=== PATIENT | male | born 1985 | race Caucasian/White ===

== ENCOUNTER → 2017-05-29 11:44 | Outpatient (CLI) | payer MEDICAID, SELFPAY ==
[2017-05-29 13:23] LABS: Absolute Lymphocyte Count 2.55 X10^3/ul (0.83-4.51); Absolute Neutrophil Count 4.7 X10^3/uL (2.0-7.7); Basophil# 0.03 X10^3/uL; Basophil% 0.4 % (0-1); Eosinophil# 0.21 X10^3/uL; Eosinophils% 2.6 % (0-5); Hematocrit 44.7 % (40-54); Lymphocyte # 2.55 X10^3/ul (4.0); Lymphocyte % 31.7 % (19-41); Mean Corp Hgb Conc 33.6 g/gl (32-36); Mean Corpuscular Hgb 30.8 pg (27.0-32.0); Mean Corpuscular Volume 91.8 fL (80-94); Mean Platelet Vol. 12.5 fl (6.2-12.0); Monocyte# 0.55 X10^3/uL; Monocyte% 6.8 % (0-10); Neutrophil # 4.69 X10^3/uL (2.7-7.7); Neutrophil % 58.4 % (47-70); Platelet Count 131 K/mm3 (150-450); RBC Distribution Width CV 13.9 % (11.6-14.6); RBC Distribution Width SD 46.1 fl (35.1-43.9); Red Blood Count 4.87 M/mm3 (4.6-6.2)
[2017-05-29 13:30] LABS: POSITIVE COUNT NO; POSITIVE DIFFERENTIAL NO; POSITIVE MORPHOLOGY NO
[2017-05-29 13:45] LABS: Microalbumin:Creatinine Ratio 5.5 mg/g CRE (<30 mg/g CRE)
[2017-05-29 13:51] LABS: AST(SGOT) 61 U/L (15-37); Alanine Aminotransfer ALT/SGPT 64 U/L (16-61); Albumin, Serum 3.6 g/dL (3.2-5.0); Alkaline Phosphatase 43 U/L (45-117); Anion Gap 6 (5-15); BUN 13 mg/dL (7-18); BUN/Creat Ratio 18.5 RATIO (10-20); Calcium,Total 8.7 mg/dL (8.5-10.1); Chloride 105 mmol/L (98-107); Cholesterol 166 mg/dL (200); EST Glomerular Filtration Rate 137 mL/min (>60); Est Glom Filt Rate - Afr Amer 165 mL/min (>60); Globulin 3.5 g/dL (2.2-4.2); Glucose 144 mg/dL (74-106); High Density Lipoprotein 30 mg/dL; Potassium 4.1 mmol/L (3.5-5.1); Protein, Total 7.1 g/dL (6.4-8.2); Sodium Level 139 mmol/L (136-145); Triglycerides 102 mg/dL; Very Low Density Lipoprotein 20 mg/dL (5-40)
[2017-05-29 13:56] LABS: Hemoglobin A1c 7.9 % (4.2-6.3)
== END ==
PROVIDERS: Family Provider Family Medicine; PCP Family Medicine; Visit Provider Family Medicine
DX: I10 Essential (primary) hypertension (principal); E11.9 Type 2 diabetes mellitus without complications; Z79.4 Long term (current) use of insulin; Z51.81 Encounter for therapeutic drug level monitoring; R53.83 Other fatigue
CPT/HCPCS: 36415; 80053; 80061; 82043; 82570; 83036; 85025

== ENCOUNTER 2017-07-23 14:09 | Emergency (ER) | payer MEDICAID, SELFPAY ==
[2017-07-23 14:09] VITALS: BP 159/96; PULSE 88; RESP 16; TEMP 36; O2SAT 98; BMI 43.1
--- NOTE | 2017-07-23 15:24 | ED.VISSUMM ---
- ER Visit Summary Date of Service: 07/23/17 Chief Complaint: [Back pain] History of Present Illness: The patient is a 31 M [presents to the emergency department with back pain that started about 2 hours ago. Patient states he was helping a friend bring in some groceries and while standing with the groceries he felt a crunching sound in his back and started to fall forward secondary to pain in his back. Patient states it hurts to stand up straight and walk. Pain is worse with certain movements. The pain seems to radiate from his left lumbar paraspinal musculature down towards the left hip. Patient denies any pain radiating down the leg. Patient denies numbness or tingling or weakness of the extremities. Patient denies any loss of bowel or bladder function or saddle anesthesia.] Patient drove himself here and also drove his mother to a physician's appointment as well. Physical Examination: [HEENT-PERRLA, EOMI. Cranial nerves II through XII grossly intact. TMs clear. Mucous membranes moist. No adenopathy. Cardiovascular-regular rate and rhythm without murmur or ectopy Lungs-clear to auscultation, chest wall stable without crepitus or subcu emphysema Abdomen-normoactive bowel sounds, soft, nontender, no rebound or rigidity, no peritoneal signs. Back exam-patient has tenderness over left lumbar paraspinal musculature that reproduces his pain. Patient has no tenderness over lumbar spine. Patient has pain with straight leg raising at 45? on the left and the pain is mostly in his back. Deep tendon reflexes are plus 2 out of 4 bilaterally at the patella and Achilles bilaterally. Patient has normal L5 extension. Patient has normal sensation to light touch. Extremities-intact ?4, normal range of motion, normal pulses, atraumatic] Test Results: [None indicated] Emergency Department Course and Treatment: [Will be given a prescription for [place] and Flexeril]. Patient is driving. Treatment Plan: [Patient will be given a prescription for Flexeril and [place] and advised to follow-up with his primary care physician within the next 5-7 days.] Disposition: [Discharged to home in stable condition.] Impression: [Lumbar strain/spasm] This note was generated with [employer] dictation software. It may contain incorrect words, spelling, and punctuation that were not noted in review of the chart prior to signing ED Disposition - Plan for ED Patient: Chief Complaint: Back Referrals: Katherine Falk DO [Primary Care Provider] -
--- NOTE | 2017-07-23 15:28 | ED.DEP ---
ED Disposition - Plan for ED Patient: Chief Complaint: Back Instructions: ED Spasm Back No Trauma Prescriptions: Hydrocodone Bitart/Apap 5-325 [[place] 5/325] 1 - 2 tab PO Q4H PRN PRN 5 Days #20 tab PRN Reason: Pain Cyclobenzaprine [Flexeril] 10 mg PO TID PRN #20 tab PRN Reason: Muscle Spasm Referrals: Katherine Falk DO [Primary Care Provider] - 5-7 Days
== END 2017-07-23 15:34 | disposition home or self-care (01) ==
LOC: ED 15:26
PROVIDERS: Emergency Provider Emergency Medicine; Family Provider Family Medicine; PCP Family Medicine
DX: S39.012A Strain of muscle, fascia and tendon of lower back, initial encounter (principal); X50.9XXA Other and unspecified overexertion or strenuous movements or postures, initial encounter; Y93.89 Activity, other specified; Y92.89 Other specified places as the place of occurrence of the external cause; Y99.9 Unspecified external cause status; E11.9 Type 2 diabetes mellitus without complications; I10 Essential (primary) hypertension; Z79.01 Long term (current) use of anticoagulants; Z86.718 Personal history of other venous thrombosis and embolism; Z86.711 Personal history of pulmonary embolism; R25.2 Cramp and spasm; Z79.4 Long term (current) use of insulin
CPT/HCPCS: 99282

== ENCOUNTER → 2017-07-27 16:45 | Outpatient (CLI) | payer MEDICAID, SELFPAY ==
--- NOTE | 2017-07-27 16:48 | RAD_ITS ---
STUDY: X-RAY - LUMBAR SPINE REASON FOR EXAM: Male, 31 years old. Pain after carrying groceries and hearing a pop in back TECHNIQUE: 5 view(s) of the lumbar spine were obtained. COMPARISON: None FINDINGS: Normal lumbar lordosis. There is no substantial scoliosis. There is a normal alignment of the vertebrae. Mild spondylitis is anterior L2-3 endplates, mild loss of anterior vertebral body height L1-L2 without acute cortical disruption. Mild disc space narrowing L2-3. The soft tissue structures are unremarkable. RAD/L/S Spine Min 4 Views IMPRESSION: Mild degenerative changes. Electronically Signed: Destiny Colmenares MD at 4:01 EDT , Service support ,
== END ==
PROVIDERS: Family Provider Family Medicine; PCP Family Medicine; Visit Provider Family Medicine
DX: M54.5 Low back pain (principal)
CPT/HCPCS: 72110

== ENCOUNTER → 2017-12-14 11:46 | Outpatient (CLI) | payer MEDICAID, SELFPAY | PROVIDERS: Family Provider Family Medicine; PCP Family Medicine; Visit Provider Family Medicine | DX: S89.91XA Unspecified injury of right lower leg, initial encounter (principal) | CPT/HCPCS: 73564 ==

== ENCOUNTER → 2018-01-28 14:34 | Outpatient (CLI) | payer MEDICAID, SELFPAY ==
[2018-01-28 18:07] LABS: Erythrocyte Sedimentation Rate 10 mm/hr (0-15)
[2018-01-28 18:29] LABS: CRP < 2.90 mg/L (0.0-3.0); Rheumatoid Factor < 10.0 IU/mL (<15)
[2018-01-31 11:19] LABS: ANTINUCLEAR ANTIBODIES DIRECT Negative (Negative)
[2018-02-01 15:12] LABS: CCP IgG Antibodies 11 units (0-19)
== END ==
PROVIDERS: PCP Family Medicine; Visit Provider Family Medicine
DX: M79.10 Myalgia, unspecified site (principal); M25.50 Pain in unspecified joint
CPT/HCPCS: 36415; 85652; 86038; 86140; 86200; 86431

== ENCOUNTER → 2019-05-26 13:04 | Outpatient (CLI) | payer MEDICAID, SELFPAY ==
--- NOTE | 2019-05-26 13:10 | SP.MBSS_ITS ---
PRIMARY / SECONDARY DIAGNOSIS: dysphagia (R13.10) REFERRING PHYSICIAN: Dr. Katherine Falk DO CURRENT DIET: regular textures, thin liquids DENTITION: WFL MENTAL STATUS: sufficient for participation RESPIRATORY STATUS: O2 via room air REASON FOR REFERRAL: The Patient is a 33 year old male referred for a modified barium swallow (MBS) study to objectively assess the Patients oropharyngeal swallow function under fluoroscopy secondary to reported intermittent difficulties with oropharyngeal transport of more solid and dry textures, further reporting persistent xerostomia. MEDICAL HISTORY: Type II diabetes mellitus, thrombophilia. PREVIOUS MODIFIED BARIUM SWALLOW STUDY: None ASSESSMENT PARAMETERS: The Patient participated in a Modified Barium Swallow (MBS) study on 05/26/2019. This study was recorded in the lateral view and images were sent to PACs for storage. Scoring was completed through each trial using the 8- point Penetration-Aspiration Scale (PAS) and summarized via the Videofluoroscopic Dysphagia Scale (VDS) and the Bolus Residue Scale (BRS), with severity scoring through the Dysphagia Severity Rating Scale (DSRS) and the Swallowing Performance Scale (SPS), and recommended diet textures through the International Dysphagia Diet Standardisation Initiative (IDDSI) RESULTS OF THE EVALUATION: The Patient presents with mastication and deglutition abilities found to be grossly within functional limits (DSRS: 1; SPS: 2) OBJECTIVE ASSESSMENT OF SWALLOW FUNCTION (QUANTITATIVE ? PER TRIAL): PENETRATION / ASPIRATION SCALE (BHATIA): 1 = does not enter airway 2 = enters airway/above vocal folds/ejected 3 = enters airway/above vocal folds/not ejected 4 = enters airway/contacts vocal folds/ejected 5 = enters airway/contacts vocal folds/not ejected 6 = enters airway/below vocal folds/ejected 7 = enters airway/below vocal folds/not ejected despite effort 8 = enters airway/below vocal folds/no effort PENETRATION / ASPIRATION SCALE (SCORE): Thin liquid - 5 mL tsp.: 1 Thin liquids via cup (single sip): 2 Thin liquids via cup (single sip): 1 Thin liquids via cup (single sip): 1 Thin liquids via cup (sequential swallows): 1 Thin liquids via straw (sequential swallows): 1 Pudding via spoon: 1 Regular textured cookie: 1 OBJECTIVE ASSESSMENT OF SWALLOW FUNCTION (QUANTITATIVE ? AGGREGATE): VIDEOFLOROSCOPIC DYSPHAGIA SCALE (VDS): LIP CLOSURE: 0 (of 4) Intact BOLUS FORMATION: 0 (of 6) Intact MASTICATION: 0 (of 8) Intact APRAXIA: 0 (of 4.5) None TONGUE TO PALATE CONTACT: 0 (of 10) Intact PREMATURE BOLUS LOSS: 0 (of 4.5) None ORAL TRANSIT TIME: 0 (of 3) < 1.5s TRIGGERING OF PHARYNGEAL SWALLOW: 0 (of 4.5) Normal VALLECULAR RESIDUE: 2 (of 6) <10% LARYNGEAL ELEVATION: 0 (of 9) Normal PYRIFORM SINUS RESIDUE: 4.5 (of 13.5) <10% COATING OF PHARYNGEAL WALL: 0 (of 9) No PHARYNGEAL TRANSIT TIME: 0 (of 6) <1.0s ASPIRATION: 6 (of 12) Supraglottic penetration BOLUS RESIDUE SCALE (BRS): 2 (of 6) residue in valleculae OBJECTIVE ASSESSMENT OF SWALLOW FUNCTION (SEVERITY GRADING): DYSPHAGIA SEVERITY RATING SCALE (DSRS): 1 (within functional limits) SWALLOWING PERFORMANCE SCALE (SPS): 2 (within functional limits) OBJECTIVE ASSESSMENT OF SWALLOW FUNCTION (QUALITATIVE): ORAL PREPARATORY PHASE: sufficient mastication rate and quality; sufficient anterior oral containment during oral manipulation; preserved management of breathing / bolus formation ORAL TRANSITIONAL PHASE: occasional piecemeal deglutition with solid / dry textures, though this is most likely attributed to his reported xerostomia; no further findings that would suggest the presence of transitional incompetence; no lingual discoordination (no tremor / undulations); no bolus consolidation impairments; sufficient oral containment across textures with no presence of premature posterior bolus loss PHARYNGEAL PHASE: transient mild pharyngeal phase dyssynchrony resulting in shallow transient prandial penetration of thin liquids, though in isolation this is not a finding that is outside that of normal aged matched subjects; appropriate hyolaryngeal excursion with sufficient / consistent laryngeal vestibule pressure generated to expel penetrated material; no signs of pharyngeal dysmotility; no signs of velopharyngeal impairments; ESOPHAGEAL PHASE: possible delayed emptying of the esophagus, though further testing with more sensitive measures would be needed to state definitively (considerations for an esophagram); no obvious esophageal phase abnormalities observed. DYSPHAGIA ASSOCIATED MEDICAL CONSIDERATIONS / INTERVENTION CONSIDERATIONS: I would consider further workup via elderly companion if there are concerns for esophageal motility issues. INTERVENTION RECOMMENDATIONS AND CONSIDERATIONS: No further skilled speech-language services warranted at this time targeting dysphagia. POST ASSESSMENT EDUCATION: Results and recommendations were discussed with the Patient immediately following MBS completion, with the Patient verbalizing understanding and agreement with all recommendations and education provided. I provided a brief overview of signs and symptoms of aspiration, with recommendations for the Patient to further discuss any further symptoms with the Patients primary care physician. DIET TEXTURE RECOMMENDATIONS: Will recommend a regular textured (IDDSI: 7), thin liquid diet (IDDSI: 0) diet RECOMMENDED COMPENSATORY STRATEGIES: Reduced bolus volume / rate of ingestion, liquid chaser at reasonable intervals, seated upright at 90 degrees during PO intake, remain upright for 30-60 minutes post meal (GERD precaution) IMAGE COUNT: Maurizio Galindo M.A., [employer] FIN[employer]SEMBLY SUPERVISOR, CBIS MBSImP Certified, LSVT Certified [facility] Speech-Language Pathology Department [email or web address]
== END ==
PROVIDERS: PCP Family Medicine; Referring Provider Family Medicine; Visit Provider Family Medicine
DX: R13.10 Dysphagia, unspecified (principal)
CPT/HCPCS: 76000; 92611

== ENCOUNTER → 2019-07-14 13:56 | Outpatient (CLI) | payer MEDICAID, SELFPAY ==
[2019-07-14 14:54] LABS: Absolute Lymphocyte Count 2.09 X10^3/uL (0.83-4.51); Absolute Neutrophil Count 3.9 X10^3/uL (2.0-7.7); Basophil# 0.03 X10^3/uL; Basophil% 0.4 % (0-1); Eosinophil# 0.18 X10^3/uL; Eosinophils% 2.7 % (0-5); Hematocrit 48.5 % (40-54); Hemoglobin 15.9 g/dL (13.0-16.5); Lymphocyte # 2.09 X10^3/ul (4.0); Lymphocyte % 30.9 % (19-41); Mean Corp Hgb Conc 32.8 g/dL (32-36); Mean Corpuscular Hgb 30.1 pg (27.0-32.0); Mean Corpuscular Volume 91.7 fL (80-94); Mean Platelet Vol. 11.7 fl (6.2-12.0); Monocyte# 0.52 X10^3/uL; Monocyte% 7.7 % (0-10); NRBC Flagged by Analyzer 0 % (0-5); Neutrophil # 3.93 X10^3/uL (2.7-7.7); Neutrophil % 58.2 % (47-70); Platelet Count 128 K/mm3 (150-450); RBC Distribution Width CV 13.4 % (11.6-14.6); RBC Distribution Width SD 45.5 fl (35.1-43.9); Red Blood Count 5.29 M/mm3 (4.6-6.2); White Blood Count 6.8 K/mm3 (4.4-11.0)
[2019-07-14 15:16] LABS: Hemoglobin A1c 11.1 % (4.2-6.3)
[2019-07-14 15:17] LABS: Microalbumin,Random Urine 11.3 mg/L (NO RANGE EST.); Microalbumin:Creatinine Ratio 6.9 mg/g CRE (<30 mg/g CRE)
[2019-07-14 15:26] LABS: AST(SGOT) 61 U/L (15-37); Alanine Aminotransfer ALT/SGPT 76 U/L (16-61); Albumin, Serum 3.5 g/dL (3.2-5.0); Alkaline Phosphatase 50 U/L (45-117); Anion Gap 2 (5-15); BUN 16 mg/dL (7-18); BUN/Creat Ratio 19.8 RATIO (10-20); Calcium,Total 8.8 mg/dL (8.5-10.1); Chloride 109 mmol/L (98-107); Cholesterol 183 mg/dL (200); Creatinine, Serum 0.81 mg/dL (0.70-1.30); EST Glomerular Filtration Rate 115 mL/min (>60); Est Glom Filt Rate - Afr Amer 139 mL/min (>60); Globulin 3.4 g/dL (2.2-4.2); Glucose 234 mg/dL (74-106); High Density Lipoprotein 32 mg/dL; Protein, Total 6.9 g/dL (6.4-8.2); Sodium Level 139 mmol/L (136-145); Triglycerides 102 mg/dL; Very Low Density Lipoprotein 20 mg/dL (5-40)
== END ==
PROVIDERS: PCP Family Medicine; Referring Provider Family Medicine; Visit Provider Family Medicine
DX: E11.65 Type 2 diabetes mellitus with hyperglycemia (principal); Z79.4 Long term (current) use of insulin; D75.9 Disease of blood and blood-forming organs, unspecified; I10 Essential (primary) hypertension; Z51.81 Encounter for therapeutic drug level monitoring
CPT/HCPCS: 36415; 80053; 80061; 82043; 82570; 83036; 85025

== ENCOUNTER → 2020-04-15 12:52 | Outpatient (CLI) | payer MEDICAID, SELFPAY ==
[2020-04-15 11:46] VITALS: BMI 38.3
[2020-04-15 14:15] LABS: Absolute Lymphocyte Count 2.02 X10^3/uL (0.83-4.51); Absolute Neutrophil Count 3.3 X10^3/uL (2.0-7.7); Basophil# 0.03 X10^3/uL; Basophil% 0.5 % (0-1); Eosinophil# 0.11 X10^3/uL; Eosinophils% 1.9 % (0-5); Hematocrit 47.2 % (40-54); Hemoglobin 15.8 g/dL (13.0-16.5); Lymphocyte # 2.02 X10^3/ul (4.0); Lymphocyte % 34.6 % (19-41); Mean Corp Hgb Conc 33.5 g/dL (32-36); Mean Corpuscular Volume 92.5 fL (80-94); Mean Platelet Vol. 11.9 fl (6.2-12.0); Monocyte# 0.39 X10^3/uL; Monocyte% 6.7 % (0-10); NRBC Flagged by Analyzer 0 % (0-5); Neutrophil # 3.28 X10^3/uL (2.7-7.7); Neutrophil % 56.1 % (47-70); Platelet Count 146 K/mm3 (150-450); RBC Distribution Width CV 13.6 % (11.6-14.6); White Blood Count 5.8 K/mm3 (4.4-11.0)
[2020-04-15 14:56] LABS: Anion Gap 4 (5-15); BUN 13 mg/dL (7-18); BUN/Creat Ratio 20.1 RATIO (10-20); Calcium,Total 8.9 mg/dL (8.5-10.1); Chloride 111 mmol/L (98-107); Creatinine, Serum 0.65 mg/dL (0.70-1.30); EST Glomerular Filtration Rate 148 mL/min (>60); Est Glom Filt Rate - Afr Amer 179 mL/min (>60); Glucose 177 mg/dL (74-106); Potassium 3.8 mmol/L (3.5-5.1); Sodium Level 140 mmol/L (136-145); Thyroid Stim Hormone (TSH) 1.11 uIU/mL (0.358-3.74)
== END ==
PROVIDERS: PCP Family Medicine; Referring Provider Internal Medicine Cardiovascular Disease; Visit Provider Internal Medicine Cardiovascular Disease
DX: I49.8 Other specified cardiac arrhythmias (principal); I10 Essential (primary) hypertension; Z86.718 Personal history of other venous thrombosis and embolism; Z86.711 Personal history of pulmonary embolism; Z79.01 Long term (current) use of anticoagulants
CPT/HCPCS: 36415; 80048; 84443; 85025

== ENCOUNTER → 2020-04-21 09:41 | Outpatient (CLI) | payer MEDICAID, SELFPAY ==
[2020-04-15 11:46] VITALS: BMI 38.3
--- NOTE | 2020-04-21 09:43 | CDU_ITS ---
Reason For Study: Dizziness Rt. Velocities/BP Lt. Velocities/BP Prox CCA 154.3/16 cm/sec. Prox CCA 121.9/24.9 cm/sec. Mid CCA 141.1/16 cm/sec. Mid CCA 98.6/18.8 cm/sec. Dist CCA 125.7/18.2 cm/sec. Dist CCA 96.1/23.7 cm/sec. Prox ICA 112.6/11.6 cm/sec. Prox ICA 79/20 cm/sec. Mid ICA 61.8/11.4 cm/sec. Mid ICA 53.2/18.8 cm/sec. Dist ICA 61.8/24.9 cm/sec. Dist ICA 65.4/27.4 cm/sec. Rt. ICA/CCA = 0.8. Lt. ICA/CCA = 0.8. Prox ECA 125.7/9.4 cm/sec. Prox ECA 85.1/15.1 cm/sec. Rt. Vert. 48.3/15.1 cm/sec. Lt. Vert. 39/6 cm/sec. Right Extracranial There is intimal thickening but no significant atherosclerotic plaque noted in the right common carotid artery. There is intimal thickening but no significant atherosclerotic plaque noted in the right internal carotid artery. There is intimal thickening but no significant atherosclerotic plaque noted in the right external carotid artery. Antegrade flow is noted in the right vertebral artery. Left Extracranial There is intimal thickening but no significant atherosclerotic plaque noted in the left common carotid artery. There is intimal thickening but no significant atherosclerotic plaque noted in the left internal carotid artery. There is intimal thickening but no significant atherosclerotic plaque noted in the left external carotid artery. Antegrade flow is noted in the left vertebral artery. Procedure This is a Carotid Duplex examination using B-mode, color flow and specral Doppler. Carotid Duplex [id number]. Exam performed in department. Interpretation Summary Intimal thickening right carotid bulb and proximal internal carotid artery with less than 50% stenosis Less than 50% stenosis right external carotid Minimal intimal thickening left carotid bulb and proximal internal carotid artery with less than 50% stenosis Less than 50% stenosis left external carotid artery Patent and antegrade vertebral arteries bilaterally Ordering Physician: Anirudh Sutherland Referring Physician: Katherine Falk Performed By: Manju Winn RVT
--- NOTE | 2020-04-21 09:43 | ECHOCS_ITS ---
Reason For Study: DIZZINESS Procedure This was a 2D Doppler, Color Flow transthoracic echocardiogram. The study was technically difficult. Due to body habitus. Contrast injection was performed. Exam performed in department. Left Ventricle Based upon the 2D echocardiographic and contrast enhanced images obtained there appears to be grossly normal left ventricular size, wall motion, and systolic function. The estimated ejection fraction is 60 %. No evidence for diastolic dysfunction. Right Ventricle Based upon the 2D echocardiographic and contrast enhanced images obtained there appears to be grossly normal right ventricular size and systolic function. Atria Normal left atrium. Normal right atrium. No doppler evidence for ASD. Mitral Valve There is no mitral annular calcification. Normal mitral valve. Trivial mitral valve insufficiency. Tricuspid Valve Normal tricuspid valve. Trivial tricuspid valve insufficiency. Unable to estimate RV systolic pressure/pulmonary artery pressure due to technically difficult study. Aortic Valve Trisinus/trileaflet aortic valve. Normal aortic valve. Pulmonic Valve The pulmonic valve is not well visualized. Trivial pulmonic valve insufficiency. Great Vessels Normal sized aortic root. Pericardium/Pleural No pericardial effusion. Medication 22 gauge I.V. with prn adaptor inserted into right arm. Diluted definity 3.0ml given slow IV push to enhance endocardial definition. MMode/2D Measurements & Calculations LVIDd: 5.5 cm IVSd: 1.3 cm Ao root diam: 3.4 cm LVIDs: 3.3 cm LVPWd: 1.2 cm RVDd: 3.6 cm FS: 40.3 % LAV(MOD-bp): 57.6 ml LA A4 area: 20.6 cm2 LA dimension(2D): 3.8 cm LAV(MOD-bp) Indexed: 20.4 ml/m2 LAV(MOD-sp2): 55.9 ml LAV(MOD-sp4): 61.9 ml RA A4 area: 16.1 cm2 Time Measurements MV dec time: 0.21 sec Doppler Measurements & Calculations MV E max dean: 89.7 cm/sec Lat Peak E' Dean: 12.6 cm/sec Med Peak E' Dean: 9.6 cm/sec MV A max dean: 69.4 cm/sec E/E' lat: 7.1 E/E' med: 9.4 MV E/A: 1.3 Ao V2 max: 105.3 cm/sec LV V1 max: 82.0 cm/sec PA V2 max: 83.2 cm/sec Ao max P.4 mmHg LV V1 max P.7 mmHg Interpretation Summary The study was technically difficult. Contrast injection was performed. Based upon the 2D echocardiographic and contrast enhanced images obtained there appears to be grossly normal left ventricular size, wall motion, and systolic function. The estimated ejection fraction is 60 %. Trivial mitral valve insufficiency. Trivial tricuspid valve insufficiency. Trivial pulmonic valve insufficiency. Unable to estimate RV systolic pressure/pulmonary artery pressure due to technically difficult study. No evidence for diastolic dysfunction. Ordering Physician: Anirudh Sutherland Referring Physician: Katherine Falk Performed By: Lisa Tapia, CHARBEL, RVT
[2020-04-21 11:31] LABS: Hematocrit 47.9 % (40-54); Hemoglobin 15.4 g/dL (13.0-16.5); Mean Corp Hgb Conc 32.2 g/dL (32-36); Mean Corpuscular Hgb 30.2 pg (27.0-32.0); Mean Corpuscular Volume 93.9 fL (80-94); Platelet Count 149 K/mm3 (150-450); RBC Distribution Width CV 13.6 % (11.6-14.6); White Blood Count 7.6 K/mm3 (4.4-11.0)
== END ==
PROVIDERS: PCP Family Medicine; Referring Provider Internal Medicine Cardiovascular Disease; Visit Provider Internal Medicine Cardiovascular Disease
DX: I49.8 Other specified cardiac arrhythmias (principal); I10 Essential (primary) hypertension; R42 Dizziness and giddiness; Z86.718 Personal history of other venous thrombosis and embolism; Z86.711 Personal history of pulmonary embolism; Z79.01 Long term (current) use of anticoagulants
CPT/HCPCS: 36415; 85027; 93225; 93226; 93306; 93880; Q9957; A4216; C8929

== ENCOUNTER → 2020-05-04 08:57 | Outpatient (CLI) | payer MEDICAID, SELFPAY ==
[2020-04-15 11:46] VITALS: BMI 38.3
[2020-05-04 10:05] LABS: Bedside Glucose 88 mg/dL (70-110)
== END ==
PROVIDERS: PCP Family Medicine; Referring Provider Internal Medicine Cardiovascular Disease; Visit Provider Internal Medicine Cardiovascular Disease
DX: R00.2 Palpitations (principal); I49.8 Other specified cardiac arrhythmias; I10 Essential (primary) hypertension; Z86.718 Personal history of other venous thrombosis and embolism; Z86.711 Personal history of pulmonary embolism; Z79.01 Long term (current) use of anticoagulants
CPT/HCPCS: 82962; J7040; A4216

== ENCOUNTER → 2020-06-10 15:05 | Outpatient (CLI) | payer MEDICAID, SELFPAY ==
[2020-04-15 11:46] VITALS: BMI 38.3
[2020-06-10 16:58] LABS: ALB/GLOB Ratio 1.2 RATIO (0.9-2.4); AST(SGOT) 59 U/L (15-37); Alanine Aminotransfer ALT/SGPT 52 U/L (16-61); Albumin, Serum 3.5 g/dL (3.2-5.0); Alkaline Phosphatase 48 U/L (45-117); Anion Gap 8 (5-15); BUN 13 mg/dL (7-18); BUN/Creat Ratio 15.6 RATIO (10-20); Calcium,Total 8.7 mg/dL (8.5-10.1); Chloride 107 mmol/L (98-107); Creatinine, Serum 0.84 mg/dL (0.70-1.30); EST Glomerular Filtration Rate 110 mL/min (>60); Est Glom Filt Rate - Afr Amer 133 mL/min (>60); Globulin 2.9 g/dL (2.2-4.2); Glucose 203 mg/dL (74-106); Potassium 4.3 mmol/L (3.5-5.1); Protein, Total 6.4 g/dL (6.4-8.2); Sodium Level 141 mmol/L (136-145)
[2020-06-14 08:07] LABS: Testosterone, Free 9.19 ng/dL (5.00-21.00)
[2020-06-14 12:09] LABS: Testosterone, % Free 3.43 % (1.50-4.20); Testosterone, Total 268 ng/dL (264-916)
== END ==
PROVIDERS: PCP Family Medicine; Visit Provider Family Medicine
DX: E11.65 Type 2 diabetes mellitus with hyperglycemia (principal); Z51.81 Encounter for therapeutic drug level monitoring; E29.1 Testicular hypofunction
CPT/HCPCS: 36415; 80053; 84402; 84403

== ENCOUNTER → 2021-07-28 | Outpatient (CLI) | payer MEDICAID, SELFPAY ==
[2021-07-28 14:16] LABS: Vitamin D,25 Hydroxy 15.2 ng/mL
[2021-07-28 14:23] LABS: Microalbumin,Random Urine 5.8 mg/L (NO RANGE EST.); Microalbumin:Creatinine Ratio 7.5 mg/g CRE (<30 mg/g CRE)
[2021-07-28 14:25] LABS: AST(SGOT) 53 U/L (15-37); Alanine Aminotransfer ALT/SGPT 54 U/L (16-61); Albumin, Serum 3.5 g/dL (3.2-5.0); Alkaline Phosphatase 41 U/L (45-117); Anion Gap 4 (5-15); BUN 14 mg/dL (7-18); BUN/Creat Ratio 19.7 RATIO (10-20); Calcium,Total 8.1 mg/dL (8.5-10.1); Chloride 107 mmol/L (98-107); Cholesterol 155 mg/dL (200); Creatinine, Serum 0.71 mg/dL (0.70-1.30); EST Glomerular Filtration Rate 132 mL/min (>60); Est Glom Filt Rate - Afr Amer 159 mL/min (>60); Globulin 3.4 g/dL (2.2-4.2); Glucose 181 mg/dL (74-106); High Density Lipoprotein 31 mg/dL; Potassium 4.3 mmol/L (3.5-5.1); Protein, Total 6.9 g/dL (6.4-8.2); Sodium Level 140 mmol/L (136-145); Thyroid Stim Hormone (TSH) 1.08 uIU/mL (0.358-3.74); Triglycerides 86 mg/dL; Very Low Density Lipoprotein 17 mg/dL (5-40)
== END | disposition home or self-care (01) ==
LOC: BIMLAB 11:56
PROVIDERS: PCP Family Medicine; Visit Provider Nurse Practitioner Family
DX: E11.65 Type 2 diabetes mellitus with hyperglycemia (principal); E66.01 Morbid (severe) obesity due to excess calories; Z79.4 Long term (current) use of insulin; Z68.39 Body mass index [BMI] 39.0-39.9, adult
CPT/HCPCS: 36415; 80053; 80061; 82043; 82306; 82570; 84443

== ENCOUNTER 2022-01-03 10:30 | Outpatient (RCR) | payer MEDICAID, SELFPAY ==
--- NOTE | 2022-03-10 08:23 | HP.PTEVAL_ITS ---
Patient's Visit Information RICKIE PARSONS Jr. is a 36 year old M referred to Physical Therapy by Dr. Jonnie Daniels MD with a diagnosis of RADICULOPATHY ,LUMBAR REGION,UNILATERAL PRIMARY OSTEOARTHRITIS ,RIGHT KNEE. Date of Evaluation: 11/25/21 Physical Therapist: Donovan Marie, PT, Cert MDT, OCS - Visit Plan Frequency: 2x /Week Duration: 4 Weeks Plan: RTD - Subjective This 36 y/o male presents to physical therapy lumbar radicular symptoms ,right knee pain. Patient has has had lumbar pain since 2013 . Patient has h/o spinal stenosis ,DDD ,HNP and spondylosis. Patient has seen pain management in past 2018 -2019 with multiple pain injections. Recently seen DR Daniels did x-rays of knee showed mod patellofemoral mod arthritis and mild DDD, x-rays showed DDD lumbar spine and recommended PT and spine consult with DR Caraballo needs MRI for verify clinical symptomology of pain. Location of back pain is mild symmetrical lumbar ,below knee paresthesia anterior lower leg since October. And knee giving way . But uses cane for balance and keeps patient steady with gait. Aggravating walking, stairs ,standing , bending and lifting . Alleviating factors sitting ,resting. No MEDS. Tried MEDS in past . Has had aquatic therapy. Coughing/snee zing +. Bowel/bladder -. Sleeping good. No h/o trauma. No abnormal night pain. Patient symptoms affects QOL. PRECAUTION: POTS. SOCIAL: single. VOCATION: unemployed - Pain Bilateral Back Pain Intensity (Out of 10): 7 Pain Intensity Range: 10 R knee Pain Intensity (Out of 10): 3 Comment: A little bit better. - Objective POSTURE: mild forward posture knee valgus in knee. SYMMTRIES: align. GAIT: ambulates with slow romel 2 point gait cane with decrease stance time. FLEXABLITY: hamstrings mod tight, piriformis mod tight. AROM KNEE: supine knee flexion 0-140 degrees. MMT: quads/hams 5/5 ,hip flexion 4/5,abd 4-/5,ankle 5/5. LUMBAR ROM: flexion mod loss ,extension mod loss ,side glides mod loss - Special Tests L/S Slump test left side: Negative L/S Slump test right side: Negative L/S Left Straight Leg Raise: Negative L/S Right Straight Leg Raise: Negative Lumbar Standing: Flexion - Mechanical Response: No effect Lumbar Standing: Flexion - Symptoms During Testing: Abolishes Lumbar Standing: Flexion - Symptoms After Testing: No worse Lumbar Standing: Extension - Mechanical Response: No effect Lumbar Standing: Extension - Symptoms During Testing: Increases Lumbar Standing: Extension - Symptoms After Testing: No worse Lumbar Standing: Right Side Glides - Mechanical Response: No effect Lumbar Standing: Right Side [place] - Symptoms During Testing: Increases Lumbar Standing: Right Side [place] - Symptoms After Testing: No worse Lumbar Standing: Left Side [place] - Mechanical Response: No effect Lumbar Standing: Left Side [place] - Symptoms During Testing: Increases Lumbar Standing: Left Side [place] - Symptoms After Testing: No worse R Knee Sharee - Meniscus: Negative R Knee Ira - ACL: Negative R Knee Posterior Sag - PCL: Negative R Knee Valgus - MCL: Negative R Knee Varus - LCL: Negative R Knee Patellar Apprehension - PFS: Positive R Knee Patellar Grind - PFS: Negative - Balance/Special Test Scores Oswestry Low Back Score: 32 Lower Extremity Functional Score: 54 - Goals Goal 1:: I with aquatics therapy program Goal Time Frame: 4-6 Weeks Goal 2:: Patient to demonstrate 40-50% Improved with decrease pain and improved function Goal Time Frame: 4-6 Weeks Goal 3:: Patient to improve lumbar ROM for function of recovery to put on shoes Goal Time Frame: 4-6 Weeks Goal 4:: Patient to improve back oswestry score by 5 points to improve QOL Goal Time Frame: 4-6 Weeks Goal 5:: Patient to improve ability to walk and stand for ADL';s with min limiation with 50 % improvement - Rehabilitation Potential Physical Therapy Diagnosis: This patient has multiple complexity issues with lumbar pain with radicular symptoms below knee which increases positioning ,and motion ,decrease lumbar ROM MOD loss thus need cane for gait impairs ADL's thus benefit physical therapy Rehabilitation Potential: Fair - Anticipated Interventions Patient/Client Instruction: Educate patient on: Condition, Plan of Care For the Purpose of:: To decrease pain, To increase ROM, To improve muscle performance and motor function, To improve ability to perform ADL's, To increase tolerance to activity/condition/position, To improve performance and independence with ADL's, To improve ability of physical actions for home/ community/work/leisure, To improve health of tissue, To decrease soft tissue restriction, To increase flexibility/ROM Therapeutic Exercise to Include: Strength training, Endurance training, Postural training, Flexibilty training, In an aquatic setting, Active ROM, Dynamic Lumbar Stabilization For the Purpose of:: To decrease pain, To increase ROM, To improve muscle performance and motor function, To improve ability to perform ADL's, To increase tolerance to activity/condition/position, To improve ability of physical actions for home/community/work/leisure, To improve health of tissue, To decrease soft tissue restriction, To increase flexibility/ROM, To prevent re-injury Thank you for the opportunity to evaluate your patient. For Medicare and Medicare HMO plans, please review the plan of care and approve it. It will need to be FAXED BACK to us at [phone] for Medicare purposes. For Medicare only, by signing this I certify the plan of care. Please let me know if there are questions or concerns regarding this plan of care. Physician Signature: Date:_
--- NOTE | 2022-03-10 08:23 | HP.PTDCSUM ---
It has been my pleasure to treat RICKIE PARSONS Jr. referred by Dr. Jonnie Daniels MD, with the diagnosis of RADICULOPATHY ,LUMBAR REGION,UNILATERAL PRIMARY OSTEOARTHRITIS ,RIGHT KNEE for a total of 9 visit(s). Discharge Date: Please see the following information for a summary of their discharge status. Subjective: Patient plans to RTD. Pain is same water ex' help temporarly. So ,patient may need MRI Bilateral Back Pain Intensity (Out of 10): 7 R knee Pain Intensity (Out of 10): 3 % Improvement: 40 Objective/Function: POSTURE: mild forward posture. GAIT: reciprocal pattern slow romel antalgic gait. LUMBAR ROM : flexion mod loss ,extension mod ,side glides mod loss. FLEXABLITY: hamstrings mod tight. MMT: quads/hams 4-5 ,hip flexion 3+/5 ,ankle 4/5 Goal 1:: I with aquatics therapy program Goal 2:: Patient to demonstrate 40-50% Improved with decrease pain and improved function Goal 3:: Patient to improve lumbar ROM for function of recovery to put on shoes Goal 4:: Patient to improve back oswestry score by 5 points to improve QOL Goal 5:: Patient to improve ability to walk and stand for ADL';s with min limiation with 50 % improvement Plan: RTD If there are questions or concerns regarding this patient's physical therapy, please feel free to call me at [phone]. Thank you for the referral of this patient. Sincerely, Donovan Marie, PT, Cert MDT, OCS Balance/Gait/Functional tests - Balance/Special Test Scores Oswestry Low Back Score: 32 Lower Extremity Functional Score: 54
== END 2022-01-03 19:00 | disposition home or self-care (01) ==
LOC: PT 10:30
PROVIDERS: PCP Family Medicine; Referring Provider Orthopaedic Surgery Sports Medicine; Visit Provider Orthopaedic Surgery Sports Medicine
DX: M17.11 Unilateral primary osteoarthritis, right knee (principal); M54.16 Radiculopathy, lumbar region
CPT/HCPCS: 97113; 97162; 97530

== ENCOUNTER → 2022-02-07 | Outpatient (CLI) | payer MEDICAID, SELFPAY ==
--- NOTE | 2022-02-07 17:37 | MRI_ITS ---
STUDY: MRI LUMBAR SPINE WITHOUT CONTRAST REASON FOR EXAM: Male, 36 years old. lower back pain, right knee pain TECHNIQUE: Standardized fat and water weighted pulse sequences were obtained in the sagittal and axial planes. COMPARISON: X-ray 11/15/2021. FINDINGS: No demonstrated fracture. Vertebral bodies are normal in height. T12-L1: Normal disc height and morphology. Normal bilateral facet joints. Normal central canal. Normal bilateral lateral recesses. Normal intervertebral neural foramina. L1-2: Small Schmorl''s nodes. Mild spondylotic bar. Mild canal stenosis due to spondylosis, short pedicles, and epidural lipomatosis. L2-3: Disc dehydration. Small L3 Schmorl''s node. Borderline canal stenosis predominantly due to short pedicles and epidural lipomatosis. Foramina are patent. L3-4: Disc dehydration. Small Schmorl''s nodes. Moderate canal stenosis due to mild spondylotic bar and shortened pedicles. Moderate foraminal stenosis due to spurring. L4-5: Disc dehydration. No disc protrusion or canal stenosis. Severe foraminal stenosis due to spurring. L5-S1: Disc dehydration. Small central disc protrusion. Mild canal stenosis due to disc protrusion and short pedicles. Moderate foraminal stenosis due to spurring. Normal visualized sacral ala. Normal visualized paraspinous soft tissue structures. MRI/Spine Lumbar (Routine) IMPRESSION: Moderate L3-4 canal stenosis. Short pedicles are contributory. Mild stenosis at L1-2 and L5-S1. Moderate to severe foraminal stenosis from L3-4 through L5-S1. Electronically Signed: Sol Washburn MD at 23:46 EDT Reading Location ID and State: [id number] / Tel , Service support ,
== END | disposition home or self-care (01) ==
LOC: MRI 17:27
PROVIDERS: PCP Family Medicine; Visit Provider Orthopaedic Surgery
DX: M54.50 Low back pain, unspecified (principal)
CPT/HCPCS: 72148

== ENCOUNTER → 2022-07-17 | Outpatient (CLI) | payer MEDICAID, SELFPAY ==
[2022-07-17 14:06] LABS: Microalbumin,Random Urine 7.2 mg/L (NO RANGE EST.)
[2022-07-17 14:12] LABS: Vitamin D,25 Hydroxy 36.1 ng/mL
[2022-07-17 14:22] LABS: ALB/GLOB Ratio 1.1 RATIO (0.9-2.4); AST(SGOT) 69 U/L (15-37); Alanine Aminotransfer ALT/SGPT 101 U/L (16-61); Albumin, Serum 3.5 g/dL (3.2-5.0); Alkaline Phosphatase 47 U/L (45-117); Anion Gap 2 (5-15); BUN 14 mg/dL (7-18); BUN/Creat Ratio 18.8 RATIO (10-20); Calcium,Total 8.3 mg/dL (8.5-10.1); Chloride 107 mmol/L (98-107); Cholesterol 145 mg/dL (200); Creatinine, Serum 0.74 mg/dL (0.70-1.30); EST Glomerular Filtration Rate 124 mL/min (>60); Est Glom Filt Rate - Afr Amer 151 mL/min (>60); Globulin 3.2 g/dL (2.2-4.2); Glucose 229 mg/dL (74-106); High Density Lipoprotein 27 mg/dL; Potassium 4.3 mmol/L (3.5-5.1); Protein, Total 6.7 g/dL (6.4-8.2); Sodium Level 136 mmol/L (136-145); Thyroid Stim Hormone (TSH) 1.24 uIU/mL (0.358-3.74); Triglycerides 94 mg/dL; Very Low Density Lipoprotein 19 mg/dL (5-40)
== END | disposition home or self-care (01) ==
PROVIDERS: PCP Family Medicine; Referring Provider Nurse Practitioner Family; Visit Provider Nurse Practitioner Family
DX: E11.9 Type 2 diabetes mellitus without complications (principal); E55.9 Vitamin D deficiency, unspecified
CPT/HCPCS: 36415; 80053; 80061; 82043; 82306; 82570; 84443

== ENCOUNTER → 2022-10-23 | Outpatient (CLI) | payer MEDICAID, SELFPAY ==
[2022-10-23 15:41] LABS: AST(SGOT) 59 U/L (15-37); Alanine Aminotransfer ALT/SGPT 67 U/L (16-61); Albumin, Serum 3.2 g/dL (3.2-5.0); Alkaline Phosphatase 46 U/L (45-117); Anion Gap 5 (5-15); BUN 15 mg/dL (7-18); BUN/Creat Ratio 18.6 RATIO (10-20); Calcium,Total 8.6 mg/dL (8.5-10.1); Chloride 107 mmol/L (98-107); Creatinine, Serum 0.81 mg/dL (0.70-1.30); EST Glomerular Filtration Rate 113 mL/min (>60); Est Glom Filt Rate - Afr Amer 137 mL/min (>60); Globulin 3.3 g/dL (2.2-4.2); Glucose 189 mg/dL (74-106); Potassium 4.1 mmol/L (3.5-5.1); Protein, Total 6.5 g/dL (6.4-8.2); Sodium Level 139 mmol/L (136-145)
== END | disposition home or self-care (01) ==
PROVIDERS: PCP Family Medicine; Referring Provider Nurse Practitioner Family; Visit Provider Nurse Practitioner Family
DX: R74.8 Abnormal levels of other serum enzymes (principal)
CPT/HCPCS: 36415; 80053

== ENCOUNTER → 2023-07-09 | Outpatient (CLI) | payer MEDICAID, SELFPAY ==
[2023-07-09 07:30] LABS: Absolute Lymphocyte Count 3.11 X10^3/uL (0.83-4.51); Absolute Neutrophil Count 4.2 X10^3/uL (2.0-7.7); Basophil# 0.04 X10^3/uL; Basophil% 0.5 % (0-1); Eosinophil# 0.11 X10^3/uL; Eosinophils% 1.4 % (0-5); Hematocrit 46.6 % (40-54); Hemoglobin 15.3 g/dL (13.0-16.5); Lymphocyte # 3.11 X10^3/ul (0.83-4.51); Lymphocyte % 38.6 % (19-41); Mean Corp Hgb Conc 32.8 g/dL (32-36); Mean Corpuscular Hgb 30.3 pg (27.0-32.0); Mean Corpuscular Volume 92.3 fL (80-94); Mean Platelet Vol. 11.6 fl (6.2-12.0); Monocyte# 0.61 X10^3/uL; Monocyte% 7.6 % (0-10); NRBC Flagged by Analyzer 0 % (0-5); Neutrophil # 4.18 X10^3/uL (2.7-7.7); Neutrophil % 51.8 % (47-70); Platelet Count 146 K/mm3 (150-450); RBC Distribution Width CV 13.5 % (11.6-14.6); RBC Distribution Width SD 45.7 fl (35.1-43.9); Red Blood Count 5.05 M/mm3 (4.6-6.2); White Blood Count 8.1 K/mm3 (4.4-11.0)
[2023-07-09 08:25] LABS: ALB/GLOB Ratio 1.2 RATIO (0.9-2.4); AST(SGOT) 53 U/L (15-37); Alanine Aminotransfer ALT/SGPT 46 U/L (16-61); Albumin, Serum 3.8 g/dL (3.2-5.0); Alkaline Phosphatase 38 U/L (45-117); Anion Gap 3 (5-15); BUN 15 mg/dL (7-18); BUN/Creat Ratio 17.3 RATIO (10-20); Calcium,Total 8.8 mg/dL (8.5-10.1); Chloride 105 mmol/L (98-107); Cholesterol 148 mg/dL (200); Creatinine, Serum 0.87 mg/dL (0.70-1.30); EST Glomerular Filtration Rate 104 mL/min (>60); Est Glom Filt Rate - Afr Amer 125 mL/min (>60); Globulin 3.2 g/dL (2.2-4.2); Glucose 142 mg/dL (74-106); High Density Lipoprotein 35 mg/dL; Potassium 3.8 mmol/L (3.5-5.1); Sodium Level 138 mmol/L (136-145); Triglycerides 104 mg/dL; Very Low Density Lipoprotein 21 mg/dL (5-40)
[2023-07-09 10:16] LABS: Microalbumin,Random Urine 9.9 mg/L (NO RANGE EST.); Microalbumin:Creatinine Ratio 6.8 mg/g CRE (<30 mg/g CRE)
[2023-07-09 11:11] LABS: Hemoglobin A1c 8.2 % (3.8-5.6)
== END | disposition home or self-care (01) ==
LOC: LAB 06:34
PROVIDERS: PCP Family Medicine; Referring Provider Family Medicine; Visit Provider Family Medicine
DX: E11.65 Type 2 diabetes mellitus with hyperglycemia (principal); I10 Essential (primary) hypertension
CPT/HCPCS: 36415; 80053; 80061; 82043; 82570; 83036; 85025

== ENCOUNTER → 2024-04-23 | Outpatient (CLI) | payer MEDICAID, SELFPAY ==
--- NOTE | 2024-04-23 16:40 | RAD_ITS ---
INDICATION: SHOULDER PAIN EXAMINATION/TECHNIQUE: X-RAY - RIGHT XR Shoulder Min 2 Views 4 VIEWS COMPARISON: No relevant prior comparison study available FINDINGS: BONES: No fracture demonstrated. JOINTS: No dislocation. SOFT TISSUES: Unremarkable. RAD/Shoulder min 2 Views IMPRESSION: Unremarkable study. Electronically Signed: Natividad Thomas MD at 8:02 EST ,
== END | disposition home or self-care (01) ==
LOC: MTRAD 16:37
PROVIDERS: PCP Family Medicine; Referring Provider Family Medicine; Visit Provider Family Medicine
DX: M25.511 Pain in right shoulder (principal)
CPT/HCPCS: 73030

== ENCOUNTER → 2024-06-27 | Outpatient (CLI) | payer MEDICAID, SELFPAY ==
[2024-06-27 13:07] LABS: Microalbumin,Random Urine < 12.0 mg/L (NO RANGE EST.); Microalbumin:Creatinine Ratio UNABLE TO CALCULATE mg/g CRE
[2024-06-27 14:23] LABS: ALB/GLOB Ratio 1.5 RATIO (0.9-2.4); AST(SGOT) 43 U/L (<=37); Alanine Aminotransfer ALT/SGPT 26 U/L (<=46); Alkaline Phosphatase 40 U/L (40-129); Anion Gap 9 (5-15); BUN 18 mg/dL (4-19); BUN/Creat Ratio 25.8 RATIO (10-20); Calcium,Total 9.1 mg/dL (7.6-11.0); Carbon Dioxide 26.9 mmol/L (21.0-32.0); Chloride 102 mmol/L (98-108); Creatinine, Serum 0.71 mg/dL (0.70-1.20); EST Glomerular Filtration Rate 119 (>60); Globulin 2.7 g/dL (2.2-4.2); Glucose 130 mg/dL (70-99); Potassium 4.3 mmol/L (3.3-5.1); Protein, Total 6.7 g/dL (5.9-8.4); Sodium Level 137 mmol/L (133-145); Vitamin D,25 Hydroxy 34.6 ng/mL (30-100)
[2024-06-27 16:09] LABS: Cholesterol 142 mg/dL (<=200); High Density Lipoprotein 37 mg/dL; Low Density Lipoprotein Calc. 87 mg/dL; Triglycerides 90 mg/dL; Very Low Density Lipoprotein 18 mg/dL (5-40); cholesterol:hdl ratio screen 3.87
== END | disposition home or self-care (01) ==
LOC: LAB 12:28
PROVIDERS: PCP Family Medicine; Referring Provider Nurse Practitioner Family; Visit Provider Nurse Practitioner Family
DX: E11.65 Type 2 diabetes mellitus with hyperglycemia (principal); Z79.4 Long term (current) use of insulin
CPT/HCPCS: 80053; 80061; 82043; 82306; 82570; 84443